=== PATIENT | male | born 1965 | race Caucasian/White ===

== ENCOUNTER → 2016-11-12 14:30 | Emergency (ER) | payer BC ==
[2016-11-12 14:34] VITALS: BP 140/83
--- NOTE | 2016-11-12 15:42 | RAD ---
HISTORY: Left calf pain COMPARISONS: None relevant TECHNIQUE: Multiple transverse and longitudinal ultrasound images were obtained of the left lower extremity from the level of the common femoral vein inferiorly through to the infrapopliteal veins using grayscale, color Doppler, and spectral Doppler imaging with and without compression and with augmentation. Comparison images were obtained of the contralateral common femoral vein. FINDINGS: VEINS: The venous system of the left lower extremity is compressible throughout its course, with normal flow on color Doppler imaging and normal response to augmentation on spectral Doppler imaging. SOFT TISSUES: Unremarkable. OTHER FINDINGS: None. IMPRESSION: NO LEFT LOWER EXTREMITY DEEP VEIN THROMBOSIS
--- NOTE | 2016-11-12 15:50 | ED ---
Lower Extremity - HPI Summary HPI Summary: 51M presents with left calf pain for a week. Was weight lifting when started to notice a pain behind his knee. States that continued to exercise on it for a couple days and then on Wed the pain increased. The pain moved down to midcalf and up to his hamstring. He denies any weakness. He also admits to numbness of the foot of his foot and the posterior aspect of midcalf and below. He denies falling or any other injury. He has no history of DVT, is nonsmoker, no recent travel or surgery, and no family history of blood clots. He denies any swelling but states that he is getting muscle cramps. He was sent in by dr Bullard for an u/s. - History of Current Complaint Chief Complaint: EDExtremityLower Stated Complaint: FOOT NUMBNESS/POSS DVT Time Seen by Provider: 11/12/16 14:38 Pain Intensity: 4 - Allergies/Home Medications Allergies/Adverse Reactions: Allergies Allergy/AdvReac Type Severity Reaction Status Date / Time No Known Allergies Allergy Verified 05/10/12 21:23 PMH/Surg Hx/FS Hx/Imm Hx Endocrine/Hematology History: Denies: Hx Diabetes Cardiovascular History: Denies: Hx Hypertension - Surgical History Surgery Procedure, Year, and Place: FOOT SURGERY AGE 3 Infectious Disease History: No Infectious Disease History: Denies: Traveled Outside the [place] in Last 30 Days - Family History Known Family History: Negative: Blood Disorder - Social History Alcohol Use: Occasionally Substance Use Type: Reports: None Smoking Status (MU): Never Smoked Tobacco Review of Systems Negative: Fever Negative: Chest Pain Negative: Shortness Of Breath Positive: Myalgia - left calf pain All Other Systems Reviewed And Are Negative: Yes Physical Exam Triage Information Reviewed: Yes Vital Signs On Initial Exam: Initial Vitals Temp Pulse Resp BP Pulse Ox 98.7 F 111 17 140/83 98 11/12/16 14:31 11/12/16 14:31 11/12/16 14:31 11/12/16 14:31 11/12/16 14:31 Vital Signs Reviewed: Yes Appearance: Positive: Well-Appearing Skin: Positive: Warm, Dry Head/Face: Positive: Normal Head/Face Inspection Eyes: Positive: Normal, Conjunctiva Clear Cardiovascular: Positive: Normal, RRR Musculoskeletal: Positive: Strength/ROM Intact - of left knee and ankle, Other - mild tenderness over calf muscle, good pulses, capillary refill <2secs. Negative: Danelle Sign Left, Edema Left Diagnostics - Vital Signs Vital Signs Temp Pulse Resp BP Pulse Ox 11/12/16 14:31 98.7 F 111 17 140/83 98 - Laboratory Lab Statement: Any lab studies that have been ordered have been reviewed, and results considered in the medical decision making process. - Ultrasound No standard instances Ultrasound Interpretation: No Acute Changes Ultrasound Interpretation Completed By: Radiologist Lower Extremity Course/Dx - Course Course Of Treatment: 51M presents with left calf pain for a week. was lifting when started to notice pain. no risk factors for DVT. sent in by dr bullard for u/ s. u/s normal. also has numbness that seems to path of tibial nerve which suspect is being aggravated by muscle spasms. denies any back pain. will treat conservatively with RICE. patient understands and agrees with plan - Diagnoses Differential Diagnosis/HQI/PQRI: Positive: DVT, Sprain, Strain Provider Diagnoses: Pain of left calf Discharge - Discharge Plan Condition: Good Disposition: HOME Patient Education Materials: Leg Sprain (ED) Referrals: Tono Ariza MD [Primary Care Provider] - Additional Instructions: Take Tylenol or ibuprofen every 6 hours as needed for pain Apply ice, rest, elevate Follow up with primary care physician if no improvement in 7 days Return to ED if develop any new or worsening symptoms
== END | disposition home or self-care (01) ==
LOC: ED 14:30
DX: M79.662 Pain in left lower leg (principal)
CPT/HCPCS: 99282